=== PATIENT | female | born 1995 | race Caucasian/White ===

== ENCOUNTER 2020-11-20 00:01 | Inpatient (IN) | payer BC ==
[~2020-11-20 00:01] MED LIST: Acetaminophen 325 MG Tab PO PRN; Carboprost Tromethamine 250 MCG/1 ML Amp IM PRN; Lactated Ringers 1,000 ML IV ONE; Lactated Ringers 1,000 ML IV SCH; Lidocaine 1% 30 ML SDV INJECT PRN; Methylergonovine 0.2 MG/1 ML Amp IM PRN; Misoprostol 25 MCG (1/4 of 100 MCG) Tab VAG PRN; Misoprostol 400 MCG (4 X 100 MCG TAB) RECTAL PRN; Misoprostol 50 MCG (1/2 of 100 MCG) Tab VAG ONE; Ondansetron 4 MG/2 ML SDV IVPUSH PRN; Oxytocin/Normal Saline 30 UNIT/500 ML BAG IV SCH; Sodium Chloride 0.9% 10 ML Syringe FLUSH PRN; Tranexamic Acid 1,000 MG in Sodium Chloride 0.9% 100 ML IV PRN
[2020-11-20] MEDS ORDERED: Nalbuphine 10 MG/1 ML Vial IM PRN (01:38)
[2020-11-20] MEDS: Lactated Ringers 1,000 ML IV SCH ×3 (02:09→12:29)
[2020-11-20] MEDS: Ondansetron 4 MG/2 ML SDV IVPUSH PRN ×2 (05:58→11:58)
[2020-11-20] MEDS ORDERED: fentaNYL 100 MCG/2 ML SDV ONE ×2 (06:04→11:57)
[2020-11-20] MEDS ORDERED: Sodium Bicarbonate 4.2% 2.5 MEQ/5 ML SDV ONE ×4 (06:04→13:26)
[2020-11-20] MEDS ORDERED: EPINEPHrine 1 MG/ML SDV ONE ×4 (06:05→13:26)
--- NOTE | 2020-11-20 06:52 | PCM.SN.2 ---
- Free Text/Narrative Note: Intrathecal. Pt states fusion from T 10 to L2. Sitting position, sterile prep and drape, 1% lidocaine w bicarb in running skinwheal from L5 to L1, attempts x 2 with introducer and 24 ga pencan at L2 L3, L3 L4, and at L4 L5 x 1. pos CSF, neg heme, neg parasthesia. 0.1 ml pf 1:1000 epi, 0.4 ml pf NS, 20 mcg pf sufenta , 30 mcg pf fentanyl, and 6 mg of 0.75% pf marcaine injected after CSF aspiration. Pt to L lateral position. Procedure time 0600 to 0645
[2020-11-20] MEDS ORDERED: fentaNYL 100 MCG/2 ML SDV IVPUSH ONE (06:54)
--- NOTE | 2020-11-20 07:57 | OBOUT ---
DATE: 11/20/2020 TIME: 0040 to 1 o'clock. REASON FOR NST: 1. Intrauterine at 40-1/7th weeks confirmed with ultrasound. 2. Impaired glucose tolerance. 3. GBS negative. 4. History of COVID-19 in distant past. 5. History of spinal cord injury with L1 burst fracture with neurogenic bladder, status post surgery after her injury in 2008 with L1 surgery stabilization for burst fracture and then had fusion T10-L2 posteriorly. 6. G1, P0. NST INTERPRETATION: During this time period, heart tone baseline is approximately 130, at least two 15 x 15 beats per minute accelerations making this strip reactive as well as reassuring. Tocometer reveals 8 contractions during this time period minimally felt by the patient. ASSESSMENT: 1. Nonstress test, reactive and reassuring. 2. Tocometer with contractions. PLAN: Due to the patient having contractions, evaluation done, she was found to be 3 cm, Cytotec was deferred and Pitocin augmentation was started. We will continue to follow clinically and closely. [facility] /[id number] MTDD
[2020-11-20] MEDS ORDERED: Sodium Chloride 0.9% 20 ML SDV ONE ×2 (08:50→13:26)
[2020-11-20] MEDS ORDERED: fentaNYL 100 MCG/2 ML SDV ITHECAL ONE ×2 (08:50→13:26)
--- NOTE | 2020-11-20 09:37 | PN ---
DATE: 11/20/2020 SUBJECTIVE: The patient is status post intrathecal, mild pain in the back and right lower quadrant, only felt at this point in time. Difficult intrathecal was noted per SENIOR NET SOFTWARE ENGINEER Lex. OBJECTIVE: heart tones are in the 110s to 115s range. Tocometer reveals contractions every 4 minutes on average at the current time with Pitocin stopped. Vaginal exam, shortly before that, she was found to be 6 cm, 80% effaced, 0 station, vertex suspected. ASSESSMENT: Intrauterine , 40-1/7 weeks, confirmed with an 18-5/7-week ultrasound with impaired glucose tolerance and group B streptococcus negative; 1, para 0; with a distant history of a spinal cord injury in 04/2009, status post surgery back at that time with residual neurogenic bladder and inability for sensation and motor from the ankles distally. PLAN: The patient is now status post Pitocin augmentation. She continued on the labor. She is now 6 cm as above. heart tones were concerning with potential for bradycardia, but the patient did receive just fentanyl recently with her intrathecal IV, suspect this is related to that as heart tones have been followed up to this point in time and were reassuring until narcotics were given. We will continue to follow clinically and closely at this point in time. The patient understands and agrees with the above treatment plan. We did stop Pitocin due to this bradycardia but suspect heart rate pattern due to recent fentanyl. [facility] /[id number] MTDReginaldo
--- NOTE | 2020-11-20 11:08 | PN ---
DATE: 11/20/2020 For history and physical, please see done in conjunction through [facility]. For this update includes presenting with contractions and having cervical dilation. Therefore, Pitocin augmentation was started. Please see NST notes for this as well as other notes. REVIEW OF SYSTEMS: Otherwise reviewed fully and felt to be contributory for the contractions. No leaking of fluid noted. She has had good movement. Otherwise, please see history and physical done through [facility] with updates in the chart. [facility] /[id number]
--- NOTE | 2020-11-20 11:15 | PN ---
DATE: 11/20/2020 SUBJECTIVE: The patient is comfortable, status post intrathecal. OBJECTIVE: Genitourinary: heart tones now in the 120s range and reactive and reassuring. Tocometer reveals contractions 4 to 5 minutes apart when monitored. Vaginal exam reveals her to be 6 cm same as my last evaluation, 80% effaced, 0 station, vertex suspected, IUPC placed after discussion with the patient. ASSESSMENT AND PLAN: Intrauterine at 40 and 1/7 weeks, confirmed with 18 and 5/7 weeks ultrasound, status post intrathecal, NST, Pitocin augmentation, now IUPC placement as above in a G1, P0, who is GBS negative with impaired glucose tolerance and history of spinal cord injury with difficulty intrathecal. 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 Otherwise, we will use nitrox, Nubain, or fentanyl for pain management and this was discussed with the patient as well, and she understands and agrees. We will continue to follow clinically and closely at this point in time. [facility] /[id number]
--- NOTE | 2020-11-20 12:18 | PCM.SN.2 ---
- Free Text/Narrative Note: Intrathecal. Sitting position, sterile prep and drape, 1% lidocaine w bicarb for skinwheal to L4 L5 interspace, introducer, 24 ga pencan x 1. pos CSF, neg heme, neg parasthesia. 0.1 ml pf 1:1000 epi, 0.4 ml pf NS, 20 mcg pf sufenta, 30 mcg pf fentanyl, and 6 mg of 0.75% pf marcaine injected after CSF aspiration. Pt to L lateral position. Procedure time 1200 to 1230
[2020-11-20] MEDS ORDERED: fentaNYL 100 MCG/2 ML SDV IV ONE (13:26)
[2020-11-20] MEDS ORDERED: Benzocaine/Menthol 20%-0.5% Spray 78 GM Cannister TOP PRN (14:31)
[2020-11-20] MEDS ORDERED: Simethicone 80 MG Tab.Chew PO PRN (14:31)
[2020-11-20] MEDS ORDERED: Oxytocin 10 Units/1 ML SDV IM PRN (14:31)
[2020-11-20] MEDS ORDERED: Zolpidem 5 MG Tab PO PRN (14:31)
[2020-11-20] MEDS: Ibuprofen 800 MG Tab PO PRN (19:35)
[2020-11-20] MEDS: Docusate Sodium 100 MG Cap PO PRN (19:35)
[2020-11-21] MEDS: Ibuprofen 800 MG Tab PO PRN ×3 (05:08→21:42)
[2020-11-21] MEDS: Acetaminophen 325 MG Tab PO PRN ×4 (06:04→21:43)
--- NOTE | 2020-11-21 07:52 | DEL ---
DATE: 11/20/2020 PREOPERATIVE DIAGNOSES: 1. Intrauterine 40 and 1/7 weeks, confirmed with 18 and 5/7 week ultrasound. 2. Impaired glucose tolerance. 3. GBS negative. 4. History of COVID in distant past. 5. History of spinal cord injury with L1 burst fracture with neurogenic bladder status post L1 stabilization surgery and fusion of T10 to L2 posteriorly. 6. G1, P0. 7. Lightly meconium-stained fluid. 8. bradycardia in the second stage of labor. POSTOPERATIVE DIAGNOSES: 1. Intrauterine 40 and 1/7 weeks, confirmed with 18 and 5/7 week ultrasound. 2. Impaired glucose tolerance. 3. GBS negative. 4. History of COVID in distant past. 5. History of spinal cord injury with L1 burst fracture with neurogenic bladder status post L1 stabilization surgery and fusion of T10 to L2 posteriorly. 6. G1, P0. 7. Lightly meconium-stained fluid. 8. bradycardia in the second stage of labor. 9. Left vaginal sidewall laceration, repaired. First-degree perineal laceration, repaired. 10.Nuchal cord x1, reduced bluntly with delivery. PROCEDURES PERFORMED: Nonstress test, Pitocin augmentation, IUPC placement and subsequent vacuum-assisted vaginal delivery, first-degree and left vaginal sidewall laceration, repaired. ANESTHESIA/ANALGESIA: The patient did receive 2 intrathecals in the first stage of labor. ESTIMATED BLOOD LOSS: 250 mL. FINDINGS: Female, score and weight pending. 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 Initially, was going to undergo Cytotec induction, but presented with contractions and cervical change being 3 cm. She underwent Pitocin augmentation after NST. She did receive an intrathecal and fentanyl with some concerns of heart tones but was related to the narcotics with resolution once these wore off. She had an IUPC placed and 2 intrathecals in the first stage of labor. She was found to be complete and started pushing and had good pushing effort and descent. I was called to the room. I donned sterile gown and gloves. The patient started pushing with contractions and bradycardia was noted. I did discuss with her and her male partner the risks, benefits, alternatives, complications, use of vacuum-assisted vaginal delivery. They understood and agreed and wished to proceed. Subsequently with the next contraction, the vertex seen splitting the labia. Small cup kiwi vacuum was applied to the vertex, pumped to the green, and with gentle pulling not to exceed into the red zone on the pulling pressure, descent was noted with the patient pushing with her contraction. vertex was then and patient needed rest for the next contraction. Subsequently, vacuum was disengaged and removed. With the next episode of pushing with contractions, vertex was delivered in FARZAD presentation, followed by anterior and posterior shoulder with nuchal cord x1 reduced bluntly at delivery and the rest of the infant delivered without difficulty. Mouth and nares were suctioned. Cord was doubly clamped, cut, and was brought over to warmer for resuscitation. Then, approximately 10 mL of cord blood obtained for labs. Placenta then delivered with gentle cord traction and fundal massage within 5 to 10 minutes. Perineum, vagina and perirectal areas were then examined and noted to have a first-degree perineal laceration that was bleeding as well as a left vaginal sidewall abrasion/laceration that was bleeding. Subsequently, these areas were tested for anesthetic results with intrathecal and nothing was felt. Subsequently, these were repaired in usual fashion using 3-0 Vicryl and hemostasis reassured. Mother and are currently stable at time of dictation. [facility] /[id number]
[2020-11-21] MEDS: Docusate Sodium 100 MG Cap PO PRN (08:17)
[2020-11-21] MEDS: Prenatal Multivitamin with Calcium/Folic Acid/Iron Tab PO SCH (08:17)
--- NOTE | 2020-11-21 08:52 | PN ---
DATE: 11/21/2020 day #1, status post vacuum-assisted vaginal delivery. SUBJECTIVE: The patient is tolerating p.o., is ambulating. She does self-cath. No calf pain. No swelling. States her bleeding slowed down significantly. OBJECTIVE: Vitals: Temperature 99.2, heart rate 82, blood pressure 113/57, respiratory rate 16. Lungs: Clear to auscultation bilaterally. Heart: S1, S2. Regular rate and rhythm. Abdomen: Firm uterus around the umbilicus. LABORATORY DATA: White cell count 10.6, hemoglobin 10.2 compared to predelivery hemoglobin 12.2, and platelet count is 143,000. ASSESSMENT: day #1, status post vacuum-assisted vaginal delivery. PLAN: We will continue to follow clinically and closely at this point in time. Follow for any signs or symptoms of anemia which the patient does not have and possible discharge tomorrow discussed. [facility] /[id number]
--- NOTE | 2020-11-21 10:06 | PCM.DEL ---
L & D Note - Delivery Note Cervical Ripening Method: Oxytocin Episiotomy Type: None Vacuum Extractor Progress Note - Alternative Labor Strategies Considered Alternative Labor Strategies Considered:: Reports: Yes Strategies Considered:: Reports: Contraction Intensity Adequate, Position Changes Used to Facilitate Rotation & Descent, Empty Bladder, Rest Indications Considered:: Reports: Yes Indications:: Reports: Suspicion of Immediate or Potential Compromise Time Out:: Reports: Yes - Patient Prepared Patient Prepared:: Reports: Yes Informed Consent:: Reports: Yes Risks: Reports: Yes Risks Include:: Reports: Laceration, Shoulder Dystocia, Maternal Injury, Other ( injury) Anesthesia/Analgesia Adequate:: Reports: Yes - Probability of Success High Probability of Success:: Reports: Yes Weight Estimated:: Reports: AGA Patient Diabetic:: Reports: No Pelvis Adequate:: Reports: Yes Position:: david Asynclitic:: Reports: No Station:: vertex seen splitting labia - Application Time Maximum Application Time & Number of Pop-Offs Predetermined:: Reports: Yes Number of Times Cup Disengaged:: 0 (see nurses notes for times, used for one episode of pushing and then manually disengaged) Type of Vacuum Used:: Reports: Cup: Soft (kiwi small cup) Vacuum Extraction: Successful - Exit Strategy Exit strategy available:: Reports: Yes and resuscitation teams readily available:: Reports: Yes - General Info Date of Service: 11/20/20 - Patient Data Vitals - Most Recent: Last Vital Signs Temp 98.2 F 11/21/20 08:00 Pulse 79 11/21/20 08:00 Resp 16 11/21/20 08:00 BP 109/68 11/21/20 08:00 Pulse Ox 100 11/21/20 08:00 Weight - Most Recent: 73.482 kg I&O - Last 24 Hours: Intake & Output 11/20/20 11/21/20 11/21/20 22:59 06:59 14:59 Intake Total 3500 Output Total 1800 Balance 1700 Lab Results Last 24 Hours: Laboratory Results - last 24 hr 11/21/20 Range/Units 05:50 WBC 10.6 H (5.0-10.0) 10^3/uL RBC 3.29 L (4.2-5.4) 10^6/uL Hgb 10.2 L D (12.0-16.0) g/dL Hct 30.7 L (37.0-47.0) % MCV 93.3 (80-100) fL MCH 31.0 (27.0-34.0) pg MCHC 33.2 (33.0-35.0) g/dL Plt Count 143 L (150-450) 10^3/uL Med Orders - Current: Current Medications Acetaminophen (Acetaminophen 325 Mg Tab) 650 mg PO Q4H PRN PRN Reason: Pain (Mild 1-3) and fever Last Admin: 11/21/20 06:04 Dose: 650 mg Documented by: Benzocaine/Menthol (Benzocaine/Menthol 20%-0.5% Eure 78 Gm Cannister) 0 gm TOP Q4H PRN PRN Reason: Perineal comfort measures Last Admin: 11/21/20 06:06 Dose: 1 spray Documented by: Carboprost Tromethamine (Carboprost Tromethamine 250 Mcg/1 Ml Amp) 250 mcg IM ASDIRECTED PRN PRN Reason: HEMORRHAGE Docusate Sodium (Docusate Sodium 100 Mg Cap) 100 mg PO BID PRN PRN Reason: Constipation Last Admin: 11/21/20 08:17 Dose: 100 mg Documented by: Lactated Ringer's (Ringers, Lactated) 1,000 mls @ 125 mls/hr IV ASDIRECTED ORIN Last Admin: 11/20/20 12:29 Dose: 125 mls/hr Documented by: Oxytocin/Sodium Chloride (Pitocin In Ns 30 Unit/500 Ml) 30 unit in 500 mls @ 2 mls/hr IV TITRATE ORIN; Protocol Last Titration: 11/20/20 16:45 Dose: Infused Documented by: Oxytocin/Sodium Chloride (Pitocin In Ns 30 Unit/500 Ml) 30 unit in 500 mls @ 2 mls/hr IV TITRATE ORIN; Protocol Tranexamic Acid 1,000 mg/ (Sodium Chloride) 110 mls @ 660 mls/hr IV ONETIME PRN PRN Reason: Bleeding Ibuprofen (Ibuprofen 800 Mg Tab) 800 mg PO Q8H PRN PRN Reason: CRAMPING Last Admin: 11/21/20 05:08 Dose: 800 mg Documented by: Lidocaine HCl (Lidocaine 1% 30 Ml Sdv) 30 ml INJECT ASDIRECTED PRN PRN Reason: Perineal Repair Methylergonovine Maleate (Methylergonovine 0.2 Mg/1 Ml Amp) 0.2 mg IM ASDIRECTED PRN PRN Reason: Hemorrhage Misoprostol (Misoprostol 25 Mcg (1/4 Of 100 Mcg) Tab) 25 mcg VAG Q4H PRN PRN Reason: cervical ripening Misoprostol (Misoprostol 400 Mcg (4 X 100 Mcg Tab)) 800 mcg RECTAL ASDIRECTED PRN PRN Reason: Hemorrhage Nalbuphine HCl (Nalbuphine 10 Mg/1 Ml Vial) 20 mg IM ONETIME PRN PRN Reason: Pain Last Admin: 11/20/20 03:19 Dose: 20 mg Documented by: Ondansetron HCl (Ondansetron 4 Mg/2 Ml Sdv) 4 mg IVPUSH Q4H PRN PRN Reason: Nausea/Vomiting Last Admin: 11/20/20 11:58 Dose: 4 mg Documented by: Oxytocin (Oxytocin 10 Units/1 Ml Sdv) 10 unit IM ONETIME PRN PRN Reason: Bleeding Prenat Multivit/Faulkner/Iron/Folic Ac ( Multivitamin With Calcium/Folic Acid/Iron Tab) 1 each PO DAILY ORIN Last Admin: 11/21/20 08:17 Dose: 1 each Documented by: Simethicone (Simethicone 80 Mg Tab.Chew) 80 mg PO Q4H PRN PRN Reason: Gas Sodium Chloride (Sodium Chloride 0.9% 10 Ml Syringe) 10 ml FLUSH ASDIRECTED PRN PRN Reason: Keep Vein Open Zolpidem Tartrate (Zolpidem 5 Mg Tab) 5 mg PO BEDTIME PRN PRN Reason: Insomnia Discontinued Medications Acetaminophen (Acetaminophen 325 Mg Tab) 650 mg PO Q4H PRN PRN Reason: Pain (Mild 1-3) and fever Acetaminophen (Acetaminophen 325 Mg Tab) 650 mg PO Q4H PRN PRN Reason: Pain/Fever Epinephrine HCl (Epinephrine 1 Mg/Ml Sdv) Confirm Administered Dose 1 mg .ROUTE .STK-MED ONE Stop: 11/20/20 06:06 Last Admin: 11/20/20 06:55 Dose: Not Given Documented by: Epinephrine HCl (Epinephrine 1 Mg/Ml Sdv) Confirm Administered Dose 1 mg .ROUTE .STK-MED ONE Stop: 11/20/20 11:59 Last Admin: 11/20/20 13:33 Dose: Not Given Documented by: Epinephrine HCl (Epinephrine 1 Mg/Ml Sdv) 0.1 mg .XX .STK-MED ONE Stop: 11/20/20 09:03 Fentanyl (Fentanyl 100 Mcg/2 Ml Sdv) Confirm Administered Dose 100 mcg .ROUTE .STK-MED ONE Stop: 11/20/20 06:05 Last Admin: 11/20/20 06:56 Dose: Not Given Documented by: Fentanyl (Fentanyl 100 Mcg/2 Ml Sdv) 50 mcg IVPUSH ONETIME ONE Stop: 11/20/20 06:55 Last Admin: 11/20/20 05:45 Dose: 50 mcg Documented by: Fentanyl (Fentanyl 100 Mcg/2 Ml Sdv) Confirm Administered Dose 100 mcg .ROUTE .STK-MED ONE Stop: 11/20/20 11:58 Last Admin: 11/20/20 13:33 Dose: Not Given Documented by: Fentanyl (Fentanyl 100 Mcg/2 Ml Sdv) 30 mcg ITHECAL .STK-MED ONE Stop: 11/20/20 08:51 Tranexamic Acid 1,000 mg/ (Sodium Chloride) 110 mls @ 660 mls/hr IV ONETIME PRN PRN Reason: Bleeding Oxytocin/Sodium Chloride (Pitocin In Ns 30 Unit/500 Ml) 30 unit in 500 mls @ 2 mls/hr IV TITRATE ORIN; Protocol Oxytocin/Sodium Chloride (Pitocin In Ns 30 Unit/500 Ml) 30 unit in 500 mls @ 2 mls/hr IV TITRATE ORIN; Protocol Lactated Ringer's (Ringers, Lactated) 1,000 mls @ 500 mls/hr IV BOLUS ONE Stop: 11/19/20 22:19 Last Admin: 11/20/20 12:00 Dose: 500 mls/hr Documented by: Lactated Ringer's (Ringers, Lactated) 1,000 mls @ 125 mls/hr IV ASDIRECTED ORIN Lidocaine HCl (Lidocaine 1% 30 Ml Sdv) 30 ml INJECT ASDIRECTED PRN PRN Reason: Perineal Repair Methylergonovine Maleate (Methylergonovine 0.2 Mg/1 Ml Amp) 0.2 mg IM ASDIRECTED PRN PRN Reason: Hemorrhage Misoprostol (Misoprostol 400 Mcg (4 X 100 Mcg Tab)) 800 mcg RECTAL ASDIRECTED PRN PRN Reason: Hemorrhage Misoprostol (Misoprostol 50 Mcg (1/2 Of 100 Mcg) Tab) 50 mcg VAG ONETIME ONE Stop: 11/19/20 20:25 Last Admin: 11/20/20 06:56 Dose: Not Given Documented by: Misoprostol (Misoprostol 25 Mcg (1/4 Of 100 Mcg) Tab) 25 mcg VAG Q4H PRN PRN Reason: cervical ripening Ondansetron HCl (Ondansetron 4 Mg/2 Ml Sdv) 4 mg IVPUSH Q4H PRN PRN Reason: Nausea/Vomiting Sodium Bicarbonate (Sodium Bicarbonate 4.2% 2.5 Meq/5 Ml Sdv) Confirm Administered Dose 2.5 meq .ROUTE .STK-MED ONE Stop: 11/20/20 06:05 Last Admin: 11/20/20 06:56 Dose: Not Given Documented by: Sodium Bicarbonate (Sodium Bicarbonate 4.2% 2.5 Meq/5 Ml Sdv) Confirm Administered Dose 2.5 meq .ROUTE .STK-MED ONE Stop: 11/20/20 11:59 Last Admin: 11/20/20 13:33 Dose: Not Given Documented by: Sodium Bicarbonate (Sodium Bicarbonate 4.2% 2.5 Meq/5 Ml Sdv) 0.5 meq .XX .STK- MED ONE Stop: 11/20/20 08:51 Sodium Chloride (Sodium Chloride 0.9% 10 Ml Syringe) 10 ml FLUSH ASDIRECTED PRN PRN Reason: Keep Vein Open Sodium Chloride (Sodium Chloride 0.9% 20 Ml Sdv) 0.4 ml .XX .STK-MED ONE Stop: 11/20/20 08:51 Sufentanil Citrate (Sufentanil 50 Mcg/1 Ml Amp) Confirm Administered Dose 50 mcg .ROUTE .STK-MED ONE Stop: 11/20/20 06:05 Last Admin: 11/20/20 06:55 Dose: Not Given Documented by: Sufentanil Citrate (Sufentanil 50 Mcg/1 Ml Amp) Confirm Administered Dose 50 mcg .ROUTE .STK-MED ONE Stop: 11/20/20 11:59 Last Admin: 11/20/20 13:34 Dose: Not Given Documented by: Sufentanil Citrate (Sufentanil 50 Mcg/1 Ml Amp) 20 mcg ITHECAL .STK-MED ONE Stop: 11/20/20 08:51 - Exam Urinary Catheter Total Time: 0Days 0Hours - Problem List Review Problem List Initiated/Reviewed/Updated: Yes - My Orders Last 24 Hours: My Active Orders 11/20/20 Lunch Regular Diet [DIET] 11/20/20 14:31 Up ad Faby [RC] ASDIRECTED Benzocaine/Menthol [Dermoplast Pain Relief 20%-0.5% Eure] See Dose Instructions TOP Q4H PRN Docusate Sodium [Colace] 100 mg PO BID PRN Ibuprofen [Motrin] 800 mg PO Q8H PRN Oxytocin [Pitocin] 10 unit IM ONETIME PRN Simethicone 80 mg PO Q4H PRN Zolpidem [Ambien] 5 mg PO BEDTIME PRN Assess Lochia [WOMSER] Per Unit Routine Assess Uterine Involution [WOMSER] Per Unit Routine Breast Pump [WOMSER] Per Unit Routine Ice Therapy [OM.PC] Per Unit Routine Perineal Care [OM.PC] Per Unit Routine Saline Lock Insert [OM.PC] Urgent Sitz Bath [OM.PC] Per Unit Routine 11/20/20 Dinner Regular Diet [DIET] 11/21/20 09:00 Vit with Ca/FA/Iron [ Plus Iron] 1 each PO DAILY
[2020-11-22] MEDS: Acetaminophen 325 MG Tab PO PRN (05:18)
[2020-11-22] MEDS: Ibuprofen 800 MG Tab PO PRN (05:18)
[2020-11-22] MEDS: Prenatal Multivitamin with Calcium/Folic Acid/Iron Tab PO SCH (08:54)
--- NOTE | 2020-11-22 10:22 | DISCH ---
ADMITTING DIAGNOSES: 1. Intrauterine at 40-1/7 weeks, confirmed with 18-5/7-week ultrasound. 2. Impaired glucose tolerance. 3. Group B streptococcus negative. 4. History of COVID-19 last year. 5. History of spinal cord injury with L1 burst fracture, complicated by neurogenic bladder and paraplegia lower extremities, status post L1 stabilization surgery and fusion at T10 to L2 posteriorly in . 6. G1, P0. DISCHARGE DIAGNOSES: 1. Intrauterine 40-1/7 weeks, confirmed with 18-5/7-week ultrasound - delivered. 2. Impaired glucose tolerance. 3. Group B streptococcus negative. 4. History of COVID-19 last year. 5. History of spinal cord injury with L1 burst fracture, complicated by neurogenic bladder and paraplegia lower extremities, status post L1 stabilization surgery and fusion at T10 to L2 posteriorly in . 6. G1, P0. 7. Lightly meconium-stained fluid. 8. bradycardia. 9. Left vaginal sidewall and first-degree perineal laceration - repaired. 10.Nuchal cord x1, reduced bluntly at delivery. HISTORY OF PRESENT ILLNESS: Please see H and P. PROCEDURES PERFORMED: Nonstress test, Pitocin augmentation, IUPC, and subsequent vacuum-assisted vaginal deliver, first-degree perineal and left vaginal sidewall laceration - repaired per Dr. Foster. SUMMARY OF HOSPITAL COURSE: The patient was admitted on the above date with above diagnosis, underwent the above procedures. Noted to have lightly meconium- stained fluid and in 2nd stage had bradycardia, underwent vacuum-assisted vaginal delivery yielding a female, score 7 and 9, weighing 8 pounds even (3615 g) with left vaginal sidewall and first-degree perineal lacerations that were repaired, and a nuchal cord x1. Please see delivery note for further details. day #1, please see progress note. day #2, date of discharge, the patient is tolerating p.o., was ambulating, passing flatus, requesting discharge. OBJECTIVE: Vital Signs: Temp 99, heart rate 83, blood pressure 122/76, respiratory rate 18. Lungs: Clear to auscultation bilaterally. Heart: S1, S2. Regular rate and rhythm. Abdomen: Firm uterus. -1 below umbilicus. LABORATORY DATA: Labs on 11/21/2020, day #1, white cell count 10.6, hemoglobin 10.2 compared to predelivery hemoglobin 12.2, and platelets of 143. CONDITION ON DISCHARGE COMPARED TO CONDITION ON ADMISSION: Improved. DISCHARGE INSTRUCTIONS: 1. Diet as tolerated. 2. Activity: No lifting more than 20 pounds. No sit-ups or straining, and pelvic rest for the next 6 weeks, with immediate return of fertility discussed with patient. 3. Reason to return or go to the emergency room discussed with patient in detail including but not limited to temperature greater than 100.4, foul- smelling discharge, red or tender breast, or increased vaginal bleeding. DISCHARGE MEDICATIONS: 1. [id number] Tylenol and ibuprofen for pain. 2. vitamins while and at least 6 weeks. FOLLOWUP: 6 weeks . Follow up for the baby on 11/24/2020 with the resident in the clinic and then 11/27/[address] Foster in the clinic. Did discuss the importance of followup and ramifications of not doing so as well as reasons to return to the emergency room with regard to her infant. Please see discharge paperwork for further details. [facility] /[id number]
== END 2020-11-22 12:00 | disposition home or self-care (01) | DRG 560 ==
LOC: DL.OBCHECK 00:01 → DL.OB 01:36
PROVIDERS: ADMIT Family Medicine; ATTEND Family Medicine
PROC: 10D07Z6 Extraction of Products of Conception, Vacuum, Via Natural or Artificial Opening (ICD-10-PCS; principal; 2020-11-20)
PROC: 10H07YZ Insertion of Other Device into Products of Conception, Via Natural or Artificial Opening (ICD-10-PCS; 2020-11-20)
PROC: 0HQ9XZZ Repair Perineum Skin, External Approach (ICD-10-PCS; 2020-11-20)
PROC: 0UQGXZZ Repair Vagina, External Approach (ICD-10-PCS; 2020-11-20)
PROC: 3E0P7VZ Introduction of Hormone into Female Reproductive, Via Natural or Artificial Opening (ICD-10-PCS; 2020-11-20)
PROC: 3E0R3BZ Introduction of Anesthetic Agent into Spinal Canal, Percutaneous Approach (ICD-10-PCS; 2020-11-20)
PROC: 00HU33Z Insertion of Infusion Device into Spinal Canal, Percutaneous Approach (ICD-10-PCS; 2020-11-20)
DX: O77.0 Labor and delivery complicated by meconium in amniotic fluid (principal); Z37.0 Single live birth; O99.814 Abnormal glucose complicating childbirth; O76 Abnormality in fetal heart rate and rhythm complicating labor and delivery; O70.0 First degree perineal laceration during delivery; O99.354 Diseases of the nervous system complicating childbirth; G82.20 Paraplegia, unspecified; Z20.822 Contact with and (suspected) exposure to COVID-19; Z28.82 Immunization not carried out because of caregiver refusal; Z3A.40 40 weeks gestation of pregnancy; Z86.16 Personal history of COVID-19
CPT/HCPCS: 01967; 36415; 51701; 59025; 59409; 85027; A9270-GY; J0171; J2300; J2405; J2590; J3010; J7120; U0002

== ENCOUNTER 2022-12-16 07:57 | Inpatient (IN) | payer BC ==
[~2022-12-16 07:57] MED LIST changes: -Acetaminophen 325 MG Tab PO PRN; -Carboprost Tromethamine 250 MCG/1 ML Amp IM PRN; -Lactated Ringers 1,000 ML IV ONE; -Lactated Ringers 1,000 ML IV SCH; -Lidocaine 1% 30 ML SDV INJECT PRN; -Methylergonovine 0.2 MG/1 ML Amp IM PRN; -Misoprostol 25 MCG (1/4 of 100 MCG) Tab VAG PRN; -Misoprostol 400 MCG (4 X 100 MCG TAB) RECTAL PRN; -Ondansetron 4 MG/2 ML SDV IVPUSH PRN; -Oxytocin/Normal Saline 30 UNIT/500 ML BAG IV SCH; -Sodium Chloride 0.9% 10 ML Syringe FLUSH PRN; -Tranexamic Acid 1,000 MG in Sodium Chloride 0.9% 100 ML IV PRN
[2022-12-16] MEDS ORDERED: Ondansetron 4 MG/2 ML SDV IVPUSH PRN (08:00)
[2022-12-16] MEDS ORDERED: Sodium Chloride 0.9% 10 ML Syringe FLUSH PRN (08:00)
[2022-12-16] MEDS ORDERED: Oxytocin/Normal Saline 30 UNIT/500 ML BAG IV SCH (08:00)
[2022-12-16] MEDS ORDERED: Lidocaine 1% 30 ML SDV INJECT PRN (08:00)
[2022-12-16] MEDS ORDERED: Tranexamic Acid 1,000 MG in Sodium Chloride 0.9% 100 ML IV PRN (08:00)
[2022-12-16] MEDS ORDERED: Misoprostol 400 MCG (4 X 100 MCG TAB) RECTAL PRN (08:00)
[2022-12-16] MEDS ORDERED: Lactated Ringers 1,000 ML IV ONE (08:00)
[2022-12-16] MEDS ORDERED: Methylergonovine 0.2 MG/1 ML Amp IM PRN (08:00)
[2022-12-16] MEDS ORDERED: Carboprost Tromethamine 250 MCG/1 ML Amp IM PRN (08:00)
[2022-12-16] MEDS ORDERED: Acetaminophen 325 MG Tab PO PRN (08:00)
[2022-12-16 08:34] LABS: HEMATOCRIT 34.7 % (37.0-47.0); HEMOGLOBIN 11.4 g/dL (12.0-16.0); MEAN CORPUSCULAR HGB CONC 32.9 g/dL (33.0-35.0); MEAN CORPUSCULAR VOLUME 91.3 fL (80-100); RED BLOOD CELL COUNT 3.8 10^6/uL (4.2-5.4); WHITE BLOOD CELL COUNT,WBC 5.8 10^3/uL (5.0-10.0)
[2022-12-16] MEDS: Misoprostol 25 MCG (1/4 of 100 MCG) Tab VAG PRN ×2 (10:30→14:40)
[2022-12-16] MEDS: Sodium Chloride 0.9% 10 ML Syringe FLUSH SCH ×2 (15:17)
[2022-12-16] MEDS: Lactated Ringers 1,000 ML IV SCH (19:25)
[2022-12-16] MEDS: Oxytocin/Normal Saline 30 UNIT/500 ML BAG IV SCH (19:25)
[2022-12-17] MEDS ORDERED: Dexmedetomidine 200 MCG/2 ML SDV ONE (02:35)
[2022-12-17] MEDS ORDERED: Promethazine 25 MG/ML SDV IM PRN (03:04)
[2022-12-17] MEDS ORDERED: ePHEDrine 50 MG/ML SDV IVPUSH PRN (03:04)
[2022-12-17] MEDS ORDERED: Naloxone 2 MG/2 ML Syringe IVPUSH PRN (03:04)
[2022-12-17] MEDS ORDERED: Ondansetron 4 MG/2 ML SDV IVPUSH PRN (03:04)
[2022-12-17] MEDS ORDERED: Lactated Ringers 500 ML IV SCH ×2 (03:15)
[2022-12-17] MEDS: Lactated Ringers 1,000 ML IV SCH (04:00)
[2022-12-17] MEDS ORDERED: Zolpidem 5 MG Tab PO PRN (08:48)
[2022-12-17] MEDS ORDERED: Oxytocin 10 Units/1 ML SDV IM PRN (08:48)
[2022-12-17] MEDS ORDERED: Benzocaine/Menthol 20%-0.5% Spray 78 GM Cannister TOP PRN (08:48)
[2022-12-17] MEDS ORDERED: Sodium Chloride 0.9% 10 ML Syringe FLUSH PRN (08:48)
[2022-12-17] MEDS ORDERED: Simethicone 80 MG Tab.Chew PO PRN (08:48)
[2022-12-17] MEDS: Oxytocin/Normal Saline 30 UNIT/500 ML BAG IV SCH (09:51)
[2022-12-17] MEDS: Acetaminophen 325 MG Tab PO PRN ×2 (11:59→19:51)
[2022-12-17] MEDS: Ibuprofen 800 MG Tab PO PRN ×2 (12:00→19:51)
[2022-12-17] MEDS: Docusate Sodium 100 MG Cap PO PRN (12:00)
[2022-12-17] MEDS: Sodium Chloride 0.9% 10 ML Syringe FLUSH SCH ×3 (19:04→22:45)
[2022-12-17] MEDS: Prenatal Multivitamin with Calcium/Folic Acid/Iron Tab PO SCH (19:05)
[2022-12-17] MEDS ORDERED: Aluminum Hydroxide/Magnesium Hydroxide/Simethicone Susp 30 ML Cup PO PRN (21:53)
[2022-12-18] MEDS: Acetaminophen 325 MG Tab PO PRN ×2 (01:49→10:00)
[2022-12-18] MEDS: Docusate Sodium 100 MG Cap PO PRN ×2 (01:55→10:00)
[2022-12-18] MEDS: Ibuprofen 800 MG Tab PO PRN ×2 (05:22→13:55)
[2022-12-18 06:25] LABS: HEMATOCRIT 30.4 % (37.0-47.0); MEAN CORPUSCULAR HEMOGLOBIN 30.3 pg (27.0-34.0); MEAN CORPUSCULAR HGB CONC 32.9 g/dL (33.0-35.0); MEAN CORPUSCULAR VOLUME 92.1 fL (80-100); RED BLOOD CELL COUNT 3.3 10^6/uL (4.2-5.4); WHITE BLOOD CELL COUNT,WBC 9.7 10^3/uL (5.0-10.0)
[2022-12-18] MEDS: Prenatal Multivitamin with Calcium/Folic Acid/Iron Tab PO SCH (10:00)
[2022-12-18] MEDS: Sodium Chloride 0.9% 10 ML Syringe FLUSH SCH (13:55)
== END 2022-12-18 15:30 | disposition home or self-care (01) | DRG 560 ==
LOC: DL.OB 07:57 → UNDOADMOB 07:57 → INTOOBSV 08:00 → OBSVTOIN 08:00 → DL.OB 08:37
PROVIDERS: ADMIT Family Medicine; ATTEND Family Medicine
PROC: 10E0XZZ Delivery of Products of Conception, External Approach (ICD-10-PCS; principal; 2022-12-16)
PROC: 10907ZC Drainage of Amniotic Fluid, Therapeutic from Products of Conception, Via Natural or Artificial Opening (ICD-10-PCS; 2022-12-16)
PROC: 3E0P7VZ Introduction of Hormone into Female Reproductive, Via Natural or Artificial Opening (ICD-10-PCS; 2022-12-16)
PROC: 3E0R3BZ Introduction of Anesthetic Agent into Spinal Canal, Percutaneous Approach (ICD-10-PCS; 2022-12-16)
PROC: 00HU33Z Insertion of Infusion Device into Spinal Canal, Percutaneous Approach (ICD-10-PCS; 2022-12-16)
DX: O99.02 Anemia complicating childbirth (principal); D64.9 Anemia, unspecified; O71.82 Other specified trauma to perineum and vulva; Z37.0 Single live birth; Z87.81 Personal history of (healed) traumatic fracture; Z98.890 Other specified postprocedural states; Z3A.39 39 weeks gestation of pregnancy; Z88.2 Allergy status to sulfonamides; Z90.49 Acquired absence of other specified parts of digestive tract; Z88.5 Allergy status to narcotic agent; Z87.440 Personal history of urinary (tract) infections
CPT/HCPCS: 01967; 36415; 51701; 51702; 59409; 85027; A9270-GY; J2405; J2590; J3490; J7120

== ENCOUNTER 2024-05-19 22:54 | Emergency (ER) | payer BC ==
[2024-05-19 23:21] LABS: BASOPHILS PERCENT AUTO 0.1 % (0.0-1.0); EOSINOPHILS PERCENT AUTO 1.2 % (1.0-3.0); HEMATOCRIT 37.8 % (37.0-47.0); HEMOGLOBIN 12.9 g/dL (12.0-16.0); MEAN CORPUSCULAR HEMOGLOBIN 29.6 pg (27.0-34.0); MEAN CORPUSCULAR HGB CONC 34.1 g/dL (33.0-35.0); MEAN CORPUSCULAR VOLUME 86.7 fL (80-100); MONOCYTES PERCENT AUTO 5.1 % (2-8); NEUTROPHILS PERCENT AUTO 64.6 % (42.2-75.2); PLATELET COUNT,PLT 273 10^3/uL (150-450); RED BLOOD CELL COUNT 4.36 10^6/uL (4.2-5.4); WHITE BLOOD CELL COUNT,WBC 8.4 10^3/uL (5.0-10.0)
[2024-05-19] MEDS: GI Cocktail Oral Solution 30 ML PO ONE (23:21)
[2024-05-19] MEDS: Famotidine 20 MG/2 ML SDV IVPUSH ONE (23:23)
[2024-05-19 23:40] LABS: HCG QUALITATIVE,SERUM NEGATIVE (NEGATIVE)
[2024-05-19 23:49] LABS: A/G RATIO 1.2; ALANINE AMINOTRANSFERASE,ALT 31 U/L (14-59); ALBUMIN 3.8 g/dL (3.4-5.0); ALKALINE PHOSPHATASE 58 U/L (46-116); ANION GAP 13.6 mEq/L (7-13); ASPARTATE AMNIOTRANSFERASE,AST 38 U/L (15-37); BILIRUBIN TOTAL 0.3 mg/dL (0.2-1.0); BLOOD UREA NITROGEN,BUN 12 mg/dL (7-18); BUN/CREATININE RATIO 17.9 (No establ ref range); CALCIUM 8.6 mg/dL (8.5-10.1); CARBON DIOXIDE,CO2 27 mmol/L (21-32); CHLORIDE,CL 102 mmol/L (98-107); CREATININE 0.67 mg/dL (0.55-1.02); EST CRCL DRUG DOSING (CG) 114.94 mL/min; ESTIMATED GFR 121 mL/min (>=60); GLUCOSE RANDOM 91 mg/dL (70-99); LIPASE 34 U/L (16-77); MAGNESIUM 2.2 mg/dL (1.8-2.4); POTASSIUM,K 3.6 mmol/L (3.5-5.1); PROTEIN TOTAL,TP 7.1 g/dL (6.4-8.2); SODIUM,NA 139 mmol/L (136-145)
== END 2024-05-20 01:28 | disposition home or self-care (01) ==
LOC: DL.ED 22:54
DX: K21.9 Gastro-esophageal reflux disease without esophagitis (principal); F17.290 Nicotine dependence, other tobacco product, uncomplicated; Z88.5 Allergy status to narcotic agent; Z88.2 Allergy status to sulfonamides; Z79.899 Other long term (current) drug therapy
CPT/HCPCS: 36415; 71045; 80053; 83690; 83735; 84484; 84703; 85025; 85379; 93005; 93010; 96374; 99284; 99285; A9270

== ENCOUNTER 2024-07-05 05:33 | Day surgery (SDC) | payer BC ==
[2024-07-05] MEDS: Dextrose 5%-0.45% NaCl 1,000 ML IV SCH (06:01)
[2024-07-05] MEDS ORDERED: fentaNYL 100 MCG/2 ML SDV IV ONE (06:10)
[2024-07-05] MEDS ORDERED: Midazolam 1 MG/ML 2 ML SDV IV ONE (06:10)
[2024-07-05] MEDS ORDERED: Midazolam 1 MG/ML 2 ML SDV ONE (06:10)
[2024-07-05] MEDS ORDERED: fentaNYL 100 MCG/2 ML SDV ONE (06:10)
[2024-07-05] MEDS: Midazolam 1 MG/ML 2 ML SDV IV ONE ×2 (06:30→06:31)
[2024-07-05] MEDS: fentaNYL 100 MCG/2 ML SDV IV ONE ×2 (06:30)
== END 2024-07-05 08:16 | disposition home or self-care (01) ==
LOC: DL.ENDO 05:33
PROVIDERS: ATTEND Internal Medicine Gastroenterology
DX: K29.50 Unspecified chronic gastritis without bleeding (principal); K21.9 Gastro-esophageal reflux disease without esophagitis; R13.0 Aphagia; Z88.2 Allergy status to sulfonamides; Z88.5 Allergy status to narcotic agent
CPT/HCPCS: 81025; J2250; J3010; J7799